=== PATIENT | female | born 2000 | race Caucasian/White ===

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

== ENCOUNTER → 2020-02-01 13:24 | Outpatient (CLI) | payer OTHER, SELFPAY ==
[2020-02-01 16:18] LABS: Hematocrit 35.4 % (36-46); Hemoglobin 11.5 g/dL (12.0-16.0)
[2020-02-01 17:02] LABS: GTT (PREG) 1 Hour PP 50gm Dose 146 mg/dL (76-139)
== END ==
PROVIDERS: PCP Physician Assistant Medical; Referring Provider Obstetrics & Gynecology; Visit Provider Obstetrics & Gynecology
DX: Z34.02 Encounter for supervision of normal first pregnancy, second trimester (principal); Z3A.26 26 weeks gestation of pregnancy
CPT/HCPCS: 36415; 82950; 85014; 85018

== ENCOUNTER → 2020-02-06 09:56 | Outpatient (CLI) | payer OTHER, SELFPAY ==
[2020-02-06 12:39] LABS: Glucose 1 Hour 194 mg/dL (70-170)
[2020-02-06 13:41] LABS: Glucose Tol Interpretation INTERPRETATION
[2020-02-06 13:56] LABS: Glucose 2 Hour 150 mg/dL (70-140)
[2020-02-06 14:57] LABS: Glucose 3 Hour 44 mg/dL (70-115)
== END ==
PROVIDERS: Specialist; PCP Physician Assistant Medical; Referring Provider Obstetrics & Gynecology; Visit Provider Obstetrics & Gynecology
DX: Z34.90 Encounter for supervision of normal pregnancy, unspecified, unspecified trimester (principal)
CPT/HCPCS: 36415; 82951; 82952

== ENCOUNTER → 2020-02-20 10:41 | Outpatient (CLI) | payer OTHER, SELFPAY ==
[2020-02-20 12:03] LABS: Glucose 99 mg/dL (70-100)
== END ==
PROVIDERS: PCP Physician Assistant Medical; Referring Provider Obstetrics & Gynecology; Visit Provider Obstetrics & Gynecology
DX: R73.09 Other abnormal glucose (principal)
CPT/HCPCS: 82947

== ENCOUNTER 2020-03-12 11:15 | Outpatient (CLI) | payer OTHER, SELFPAY ==
--- NOTE | 2020-03-12 13:19 | PM.OBTRLD ---
Visit Information Visit Information Date of evaluation: 03/12/20 Primary OB Provider: Sonia Reyna On-call OB Provider: Sonia Reyna Reason for Evaluation: Yes non-stress test non-stress test reason: diabetes (gestational, insulin-dependant) PFSH Medical History (Updated 03/12/20 @ 11:15 by Sonia Reyna MD) Anxiety Depression First in adolescent 16 years of age or older Migraine Surgical History (Updated 09/26/19 @ 12:47 by Jacqueline Jean, RN) H/O wisdom tooth extraction Hx of tonsillectomy Family History (Updated 09/26/19 @ 12:46 by Jacqueline Jean, RN) Mother History of IBS Asthma Father No known health problems Grandfather Family estrangement Grandmother Breast cancer Bone cancer Grandfather Cancer Grandmother Pacemaker Brother Trisomy 18 Social History marital status: unmarried,single pets and animals: Yes (X 2 cats and X 1 dog ) education level: high school (Finishing up [employer] online) current occupational exposures/hazards: Yes Previous occupational history: [employer] : part-time special [place] needs: No Smoking Status: Former smoker Tobacco: How many years used: 2 second hand exposure: No alcohol intake: former (pre- : rare use) substance use type: does not use Evaluation Evaluation Baseline heart rate: 125 Variability: Moderate (11-25) monitor accelerations: Present monitor decelerations: Absent Category of Tracing: Reactive Diagnosis, Plan/Disposition Plan/Disposition Plan: Assessment: 33 weeks gestation, GDM, insulin-dependant Plan: D/C to home, F/U in 1 wk for NST, 2wks for ob check OB Disposition: home
== END 2020-03-12 12:27 | disposition home or self-care (01) ==
LOC: OB 03-13 09:08
PROVIDERS: PCP Physician Assistant Medical; Referring Provider Obstetrics & Gynecology; Visit Provider Obstetrics & Gynecology
DX: O24.414 Gestational diabetes mellitus in pregnancy, insulin controlled (principal); Z3A.33 33 weeks gestation of pregnancy
CPT/HCPCS: 59025; G0378; G0379

== ENCOUNTER 2020-03-19 11:28 | Outpatient (CLI) | payer OTHER, SELFPAY | END 2020-03-19 11:59 | disposition home or self-care (01) | LOC: OB 03-27 09:37 | PROVIDERS: PCP Physician Assistant Medical; Referring Provider Obstetrics & Gynecology; Visit Provider Obstetrics & Gynecology | DX: O24.419 Gestational diabetes mellitus in pregnancy, unspecified control (principal); Z3A.32 32 weeks gestation of pregnancy | CPT/HCPCS: 59025; G0378; G0379 ==

== ENCOUNTER 2020-03-26 11:08 | Outpatient (CLI) | payer OTHER, SELFPAY | END 2020-03-26 11:39 | disposition home or self-care (01) | LOC: LABOR 11:26 → OB 12:40 | PROVIDERS: PCP Physician Assistant Medical; Referring Provider Obstetrics & Gynecology; Visit Provider Obstetrics & Gynecology | DX: O24.419 Gestational diabetes mellitus in pregnancy, unspecified control (principal); Z3A.33 33 weeks gestation of pregnancy | CPT/HCPCS: 59025; G0378; G0379 ==

== ENCOUNTER 2020-04-02 10:03 | Outpatient (CLI) | payer OTHER, SELFPAY | END 2020-04-02 10:45 | disposition home or self-care (01) | LOC: LABOR 10:51 → OB 15:29 | PROVIDERS: PCP Physician Assistant Medical; Referring Provider Obstetrics & Gynecology; Visit Provider Obstetrics & Gynecology | DX: O24.419 Gestational diabetes mellitus in pregnancy, unspecified control (principal); O47.03 False labor before 37 completed weeks of gestation, third trimester; Z3A.34 34 weeks gestation of pregnancy | CPT/HCPCS: 59025; G0378; G0379 ==

== ENCOUNTER → 2020-04-10 09:20 | Outpatient (CLI) | payer OTHER, SELFPAY ==
[2020-04-11 07:44] LABS: Strep Grp B PCR NEG for Grp B Strep
== END ==
PROVIDERS: PCP Physician Assistant Medical; Visit Provider Obstetrics & Gynecology
DX: Z34.93 Encounter for supervision of normal pregnancy, unspecified, third trimester (principal); Z3A.35 35 weeks gestation of pregnancy
CPT/HCPCS: 87653

== ENCOUNTER 2020-04-10 09:59 | Outpatient (CLI) | payer OTHER, SELFPAY | END 2020-04-10 10:30 | LOC: LABOR 10:59 → OB 04-12 08:48 | PROVIDERS: PCP Physician Assistant Medical; Referring Provider Obstetrics & Gynecology; Visit Provider Obstetrics & Gynecology | DX: O24.419 Gestational diabetes mellitus in pregnancy, unspecified control (principal); O47.03 False labor before 37 completed weeks of gestation, third trimester; Z3A.35 35 weeks gestation of pregnancy | CPT/HCPCS: 59025; 87653; G0378; G0379 ==

== ENCOUNTER 2020-04-16 11:02 | Outpatient (CLI) | payer OTHER, SELFPAY | END 2020-04-16 11:35 | disposition home or self-care (01) | LOC: LABOR 11:14 → OB 04-17 07:47 | PROVIDERS: PCP Physician Assistant Medical; Referring Provider Obstetrics & Gynecology; Visit Provider Obstetrics & Gynecology | DX: O24.419 Gestational diabetes mellitus in pregnancy, unspecified control (principal); Z3A.36 36 weeks gestation of pregnancy | CPT/HCPCS: 59025; G0378; G0379 ==

== ENCOUNTER 2020-04-24 10:27 | Outpatient (CLI) | payer OTHER, SELFPAY | END 2020-04-24 11:25 | disposition home or self-care (01) | LOC: LABOR 11:12 → OB 04-25 07:35 | PROVIDERS: PCP Physician Assistant Medical; Referring Provider Obstetrics & Gynecology; Visit Provider Obstetrics & Gynecology | DX: O24.414 Gestational diabetes mellitus in pregnancy, insulin controlled (principal); Z3A.37 37 weeks gestation of pregnancy | CPT/HCPCS: 59025; G0378; G0379 ==

== ENCOUNTER 2020-04-30 18:19 | Inpatient (IN) | payer OTHER, SELFPAY ==
[2020-04-30 19:22] LABS: Add Manual Diff / Slide Review NO; Basophils Absolute Auto 0 /uL (0-100); Basophils Percent Auto 0.2 % (0-2); Eosinophils Absolute Auto 100 /uL (0-450); Eosinophils Percent Auto 0.6 % (2-4); Hematocrit 37.1 % (36-46); Lymphocytes Absolute Auto 2200 /uL (1100-4500); Lymphocytes Percent Auto 18.4 % (25-40); Mean Corpuscular HGB Conc 32.3 % (30-36); Mean Corpuscular Hemoglobin 28.7 PG (26-34); Mean Corpuscular Volume 88.7 fL (80-100); Monocytes Absolute Auto 900 /uL (0-900); Monocytes Percent Auto 7.5 % (3-14); Neutrophils Absolute Auto 8900 /uL (1500-7000); Neutrophils Percent Auto 73.3 % (50-75); Platelet Count 233 X10^3/uL (150-400); Red Blood Cell Count 4.18 X10^6/uL (4.0-5.2); Red Cell Distribution Width 13.8 % (11.6-14.8); White Blood Cell Count 12.1 X10^3/uL (4.5-11.0)
[2020-04-30 19:58] LABS: COVID19 -Nasal RAPID Negative (Negative)
[2020-04-30] MEDS: DINOPROSTONE VAG (CERVIDIL) 10 MG VAG (20:20)
[2020-04-30 21:14] VITALS: BP 131/74
--- NOTE | 2020-05-01 08:36 | P.HPOB_ITS ---
OB HPI Date/Time Date of admission: 04/30/20 Date Patient Seen: 05/01/20 Time Patient Seen: 07:30 History of Present Condition Chief complaint: : 1 Para: 0 Estimated Date of Delivery: 05/14/20 Estimated Gestational Age (weeks): 38+1 Narrative: Anita Sibley is a 20 year old female 1 para 0 at 38- ,1/7 weeks gestation who presented last evening for Cervidil cervical ripening, and this morning for Pitocin induction of labor due to gestational diabetes requiring insulin Indications Indication for induction OB: other (Gestational diabetes on insulin) History of Present care: good care, initiated at week # (8), number of visits (10) and pounds weight gain (48) Dating criteria: LMP confirmed by 1st trimester US Ultrasounds: normal 1st trimester US and normal mid trimester US Obstetrical complications: gestational diabetes (Requiring insulin) Medical complications: none Preadmission Labs Blood type: A (+) positive -: Antibody screen: negative, GBS status: negative, HBsAG: negative, HIV: ne gative and RPR/VDLR: negative -: Chlamydia screen: not detected and Gonorrhea screen: not detected -: Rubella: immune and Varicella: immune HCT: 37.1 HCAB: negative PAP: Normal Cell-free DNA: Normal female, AFP negative Urine: Negative 1 hr GTT: 146 3 hr GTT: 1 hr (194), 2 hr (150) and 3 hr (44) Fasting blood glucose: 99 Evaluation Evaluation Baseline heart rate: 135 Variability: Moderate (11-25) monitor accelerations: Present monitor decelerations: Absent Contraction Frequency (minutes): 4 Uterine Contraction Intensity: Moderate Status: Category l Cervical dilation (cm): 2 Cervical effacement (%): 90 station: -1 Laboratory results: Laboratory Tests 04/30/20 04/30/20 04/30/20 18:50 18:50 19:56 WBC 12.1 H RBC 4.18 Hgb 12.0 Hct 37.1 MCV 88.7 MCH 28.7 MCHC 32.3 RDW 13.8 Plt Count 233 Neut % (Auto) 73.3 Lymph % (Auto) 18.4 L [place] % (Auto) 7.5 Eos % (Auto) 0.6 L Baso % (Auto) 0.2 Neut # (Auto) 8900 H Lymph # (Auto) 2200 [place] # (Auto) 900 Eos # (Auto) 100 Baso # (Auto) 0 SARS-CoV-2 (PCR) Negative Blood Type A Positive Antibody Screen Negative PFSH Medical History (Updated 04/10/20 @ 08:16 by CHRISTIANE Kinney) Anxiety Depression First in adolescent 16 years of age or older Migraine Surgical History (Updated 09/26/19 @ 12:47 by Jacqueline Jean, RN) H/O wisdom tooth extraction Hx of tonsillectomy Family History (Updated 09/26/19 @ 12:46 by Jacqueline Jean, [place]) Mother History of IBS Asthma Father No known health problems Grandfather Family estrangement Grandmother Breast cancer Bone cancer Grandfather Cancer Grandmother Pacemaker Brother Trisomy 18 Social History marital status: unmarried,single pets and animals: Yes (X 2 cats and X 1 dog ) 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) current occupational exposures/hazards: Yes Previous occupational history: [employer] : part-time special [place] needs: No Smoking Status: Former smoker Tobacco: How many years used: 2 second hand exposure: No alcohol intake: former (pre- : rare use) substance use type: does not use Meds Home Medications and Allergies Home Medications Medication Instructions Recorded Confirmed Type prenat.vits,manan,wtg-[id number]-domxs 1 tab PO DAILY 09/26/19 04/24/20 History ondansetron 4 mg disintegrating 4 mg PO BID-TID PRN #20 tab 10/06/19 04/24/20 Rx tablet metoclopramide HCl 10 mg tablet 10 mg PO QID PRN #20 tab 11/07/19 04/24/20 Rx hydroxyzine HCl 25 mg tablet 25 mg PO BID PRN #20 tab 11/29/19 04/24/20 Rx citalopram 10 mg tablet 10 mg PO DAILY #30 tab 01/24/20 04/24/20 Rx blood sugar diagnostic #120 ea 02/21/20 04/24/20 Rx blood-glucose meter #1 ea 02/21/20 04/24/20 Rx lancets #120 ea 02/21/20 04/24/20 Rx insulin NPH isoph U-100 human 100 10 unit SUBCUT QPM #15 ml 02/29/20 04/24/20 Rx unit/mL (3 mL) subcutaneous pen pen needle, diabetic 29 gauge x #30 ea 03/02/20 04/24/20 Rx 1/2 Allergies Allergy/AdvReac Type Severity Reaction Status Date / Time No Known Drug Allergies Allergy Verified 04/24/20 09:52 Exam Vital Signs (past 8 hours): Generally: Patient in mild to moderate distress secondary to contractions Lungs: Clear to auscultation bilaterally Cardiovascular: Regular rate and rhythm Fundal height: 40 cm Estimated weight: 8 lb Extremities: 1+ edema, 1+ DTRs Objective Labs Result Diagrams: 04/30/20 18:50 Labs: Laboratory Results - last 24 hr 04/30/20 04/30/20 04/30/20 18:50 18:50 19:56 WBC 12.1 H RBC 4.18 Hgb 12.0 Hct 37.1 MCV 88.7 MCH 28.7 MCHC 32.3 RDW 13.8 Plt Count 233 Neut % (Auto) 73.3 Lymph % (Auto) 18.4 L [place] % (Auto) 7.5 Eos % (Auto) 0.6 L Baso % (Auto) 0.2 Neut # (Auto) 8900 H Lymph # (Auto) 2200 [place] # (Auto) 900 Eos # (Auto) 100 Baso # (Auto) 0 SARS-CoV-2 (PCR) Negative Blood Type A Positive Antibody Screen Negative Assessment and Plan Assessment and Plan Assessment and Plan narrative: Assessment: 20-year-old 1 para 0 at 38-,1/7 weeks gestation with gestational diabetes requiring insulin Status post Cervidil for cervical ripening Favorable cervix Plan: Pitocin per protocol 2 Epidural as necessary Artificial rupture of membranes when able Expected management to spontaneous vaginal delivery Time Spent with Patient Total time spent with greater than 50% in coordination of care (as documented) at patient's floor/unit and/or counseling patient:: less than 15 minutes
[2020-05-01] MEDS: OXYTOCIN PREMIX 30 UNIT/500 ML PLAST..BAG IV (08:37)
[2020-05-01] MEDS: LACTATED RINGERS 1,000 ML 125 ML IV (08:37)
[2020-05-01] MEDS: fentaNYL 100 MCG/2 ML INJ 50 MCG IV ×2 (17:55→19:11)
[2020-05-01] MEDS: FENT 2MCG/ML BUPIV 0.125% EPI 200 MCG/100 ML PLAST..BAG 13 MCG EPIDURAL (18:02)
--- NOTE | 2020-05-01 22:41 | PM.OBPRVD ---
Events: Diabetes, Gestational Diabetes (Requiring insulin) and Labor Induction Labor & Delivery Delivery date: 05/01/20 Cervical ripening method: per Cervidil protocol Induction method: per pitocin protocol Delivery augmentation: rupture of membranes Delivery monitor: external FHT and external uterine Route of delivery: Episiotomy description: None L&D Laceration Description: Periurethral - 1st Degree, Perineal - 2nd Degree and Vaginal - 2nd Degree Delivery repair: vicryl and chromic Estimated blood loss (mL): 350 Anesthesia Type: Epidural Complications: None Narrative: Patient complete and pushed for 2 hours. At 1952, a live female delivered spontaneously over an intact perineum. No nuchal cord. The remainder of the body delivered without difficulty and was placed on mom's abdomen. The cord was double clamped and cut. Cord bloods were obtained. The placenta delivered intact with a three-vessel cord at 7:57 p.m.. The remainder of the Pitocin was given in the IV fluids. The fundus was massaged to firm. There was brisk bleeding from a periurethral laceration. This was repaired with 4 0 chromic in a running interlocking fashion. Hemostasis was achieved. A second-degree vaginal/perineal laceration was closed in the usual fashion with 2-0 Vicryl and 2-0 chromic. Hemostasis was achieved. A rectal exam was performed and there were no tears into the rectum or suture in the rectum. Apgars 7 at 1 minute and 9 at 5 minutes. Estimated blood loss 350 cc. Epidural analgesia. . Mom and stable to recovery. Baby 1: gender: Female Presentation: vertex Position: Left Occiput Anterior Placenta delivery description: Spontaneous Cord Vessel Description: 3 Vessels and Clamped/Cut score (1 min): 7 score (5 min): 9 Plan for aftercare: Routine care
[2020-05-01] MEDS: IBUPROFEN 600 MG TABLET PO (23:00)
[2020-05-02] MEDS: IBUPROFEN 600 MG TABLET PO ×4 (04:47→23:56)
[2020-05-02 08:04] LABS: Hematocrit 29.8 % (36-46); Hemoglobin 9.8 g/dL (12.0-16.0)
[2020-05-02] MEDS: LANOLIN OINT 7 GM 1 APPLIC TOP (11:12)
[2020-05-02] MEDS: DOCUSATE 100 MG CAPSULE PO (11:12)
[2020-05-02] MEDS: DERMOPLAST SPRAY 20% 60 ML 1 SPRAY TOP (11:14)
[2020-05-02] MEDS: PRENATAL VIT,CALC/IRON/FOLIC 1 TABLET 1 TAB PO (11:14)
--- NOTE | 2020-05-02 14:50 | PM.OBPN.1 ---
Subjective - OB Subjective Patient comments: no complaints, pain well controlled and other (Whyte catheter still in) baby status: doing well and nursing well [place] feeding status: exclusively breast feeding Date Patient Seen: 05/02/20 Time Patient Seen: 07:50 Interval history: Patient is a 20-year-old 1 para 1 day # 1 status post spontaneous vaginal delivery. Patient had a periurethral laceration. Whyte catheter still in place. Exam Vital Signs (past 8 hours): Generally: Patient is sitting up in bed, no acute distress. Fundus: Firm at U -1 Perineum: Intact Extremities: 1+ edema, negative Homans Objective Labs Result Diagrams: 05/02/20 07:42 Labs: Laboratory Results - last 24 hr 05/02/20 07:42 Hgb 9.8 L Hct 29.8 L Assessment & Plan Plan day: 1 plan OB: other (Remove Whyte catheter this afternoon) Time Spent With Patient Time: Total time spent is greater than 50% in coordination of care (as documented) at patient's floor/unit and/or counseling patient: Time with patient: less than 15 minutes
[2020-05-03] MEDS: IBUPROFEN 600 MG TABLET PO (06:05)
[2020-05-03 10:34] VITALS: BP 134/74; PULSE 94; RESP 20; TEMP 36.6
--- NOTE | 2020-05-06 11:31 | PM.OBDS.1 ---
Discharge Providers Provider Date of admission: 04/30/20 18:19 Discharge Date: 05/03/20 Primary care physician: Montserrat Houston PA-C Consults: 05/02/20 22:39 Consult to Powdered [employer] Supervisor Routine Comment: Discharge provider: Sonia Reyna MD Summary Hospital Course Date Patient Seen: 05/03/20 Time Patient Seen: 10:30 Diagnoses: Thirty-eight weeks gestation Gestational diabetes requiring insulin Cervical ripening with Cervidil Pitocin induction of labor Artificial rupture of membranes Epidural analgesia Spontaneous vaginal delivery Periurethral laceration repair Second-degree laceration repair Hospital Course: Patient is a 20-year-old 1 para 1 who presented on April 30, 2019 for Cervidil cervical ripening. She received 1 dose. On the morning of May 01, 2019 Pitocin was started. Artificial rupture membranes was performed. She received an epidural for pain management. She progressed to complete dilation and had a spontaneous vaginal delivery. She had a periurethral and second-degree laceration which were repaired. Her course was unremarkable. And she was discharged home on May 03, 2020. Peripartum Data Delivery Method: Natural Vaginal Laceration Description: Periurethral - 1st Degree and Vaginal - 2nd Degree Episiotomy description: None Procedures: Cervidil cervical ripening Pitocin induction of labor Artificial rupture of membranes Epidural analgesia Spontaneous vaginal delivery Repair of periurethral and second-degree laceration complications: none [place] 1: Gender: Female Disposition of : home Status at Discharge Cognitive/behavioral status at discharge: oriented Functional status at discharge: independent ambulation Overall status at discharge: patient is progressing back to baseline Time Spent with Patient Time attestation: Total time spent providing and/or coordinating discharge services: Time spent: Less than 30 minutes Objective Labs Result Diagrams: 05/02/20 07:42 Exam Vital Signs (past 8 hours): Generally: Patient is sitting up in bed, nursing infant, no acute distress Lungs: Clear to auscultation bilaterally Cardiovascular: Regular rate and rhythm Fundal height: U -1 Extremities: Negative Homans, 1+ edema Discharge Plan Discharge Plan Patient Disposition: Home Provider Discharge Comment: Call with fever, chills, or bleeding vaginally more than a pad in an hour Ibuprofen 600 mg every 6 hours as needed Discharge orders & Medications Prescriptions: Continued citalopram [Celexa] 10 mg tablet 10 mg PO DAILY Qty: 30 RF: 3 prenat.vits,manan,mev-[id number]-[id number] Tablet 1 tab PO DAILY RF: 0 hydroxyzine HCl 25 mg tablet 25 mg PO BID PRN (Reason: anxiety) Qty: 20 RF: 0 Discontinued ondansetron 4 mg tablet,disintegrating 4 mg PO BID-TID PRN (Reason: Nausea & Vomiting in ) Qty: 20 RF: 2 metoclopramide HCl [Reglan] 10 mg tablet 10 mg PO QID PRN (Reason: nausea and vomiting) Qty: 20 RF: 2 insulin NPH isoph U-100 human 100 unit/mL (3 mL) insulin pen 10 unit SUBCUT QPM Qty: 15 RF: 1 No Action (DME) blood-glucose meter [Blood Glucose Monitoring] Kit See Rx Instructions .ROUTE .MEDSUPPLY Qty: 1 RF: 0 (DME) Blood Glucose Test Strip See Rx Instructions .ROUTE .MEDSUPPLY Qty: 120 RF: 3 (DME) lancets Misc See Rx Instructions .ROUTE .MEDSUPPLY Qty: 120 RF: 3 (DME) pen needle, diabetic 29 gauge x 1/2 needle See Rx Instructions .MEDSUPPLY Qty: 30 RF: 5 Follow up/Referrals: Snoia Reyna MD [Physician] - 6 Weeks (Please follow up with Dr. Reyna for a visit on ThursdayJune 11 at 4:00pm with a 3:45 check-in time. If you have any questions/concerns or need to reschedule please call .) Diet/Activity/Treatments Diet: Regular Activity: No intercourse No squatting or lunging Skin/Wound/Dressing Care Report to your healthcare provider any signs of infection, such as:: chills, fever, increased pain and unusual drainage Visit Report/Discharge Packet Instructions: DI for Labor and Delivery, Vaginal Stand Alone Forms: Discharge: Care Discharge Data Primary Care Provider: Montserrat Houston
== END 2020-05-03 12:05 | disposition home or self-care (01) | DRG 807 ==
PROVIDERS: Admitting Provider Obstetrics & Gynecology; PCP Physician Assistant Medical; Referring Provider Obstetrics & Gynecology; Visit Provider Obstetrics & Gynecology
DX: O24.424 Gestational diabetes mellitus in childbirth, insulin controlled (principal); Z37.0 Single live birth; Z3A.38 38 weeks gestation of pregnancy; O70.0 First degree perineal laceration during delivery; O71.89 Other specified obstetric trauma
CPT/HCPCS: 01967; 36415; 59050; 59200; 59400; 85014; 85018; 85025; 86850; 86900; 86901; 87635; C9803; G0379; J2590; J3010